=== PATIENT | male | born 1990 ===

== ENCOUNTER 2021-11-06 21:03 | Emergency (ER) | payer BC, OTHER ==
[2021-11-06] MEDS ORDERED: Lidocaine 1% with EPINEPHrine 1:100,000 20 ML MDV ONE (21:11)
[2021-11-06] MEDS ORDERED: fentaNYL 100 MCG/2 ML SDV ONE (21:15)
[2021-11-06] MEDS ORDERED: Sodium Chloride 0.9% 100 ML ONE (21:21)
[2021-11-06] MEDS ORDERED: ceFAZolin 1 GM Vial ONE (21:21)
[2021-11-06] MEDS ORDERED: ceFAZolin 1 GM in Sodium Chloride 0.9% 50 ML IV ONE (21:27)
[2021-11-06] MEDS ORDERED: Sodium Chloride 0.9% 50 ML ONE (21:28)
[2021-11-06] MEDS ORDERED: Sodium Chloride 0.9% 1,000 ML IV ONE (21:30)
[2021-11-06] MEDS ORDERED: Lactated Ringers 1,000 ML IV ONE (21:32)
[2021-11-06] MEDS ORDERED: fentaNYL 100 MCG/2 ML SDV IVPUSH ONE (21:33)
[2021-11-06 21:37] LABS: ESTIMATED GFR 83 mL/min (>60)
[2021-11-06] MEDS ORDERED: Lidocaine 1% with EPINEPHrine 1:100,000 20 ML MDV INJECT ONE (21:37)
[2021-11-06] MEDS ORDERED: Tranexamic Acid 1,000 MG in Sodium Chloride 0.9% 100 ML IV SCH (22:00)
[2021-11-06] MEDS ORDERED: HYDROmorphone 1 MG/ML Syringe IVPUSH ONE (22:06)
== END 2021-11-06 23:15 ==
LOC: JD.ED 21:03
DX: S61.432A Puncture wound without foreign body of left hand, initial encounter (principal); I10 Essential (primary) hypertension; Z79.899 Other long term (current) drug therapy; Z86.16 Personal history of COVID-19; Z20.822 Contact with and (suspected) exposure to COVID-19; W34.00XA Accidental discharge from unspecified firearms or gun, initial encounter
CPT/HCPCS: 12002; 36415; 73120; 80053; 85025; 85610; 87635; 96365; 96375; 99284; J0690; J1170; J3010; J7120; U0002